=== PATIENT | female | born 1995 | race Caucasian/White ===

== ENCOUNTER 2017-08-24 03:41 | Emergency (ER) | payer BC, OTHER ==
[2017-08-24 04:02] VITALS: BP 129/82
[2017-08-24] MEDS ORDERED: Sodium Chloride 0.9% 10 ML Syringe FLUSH PRN (04:20)
[2017-08-24] MEDS ORDERED: Ondansetron 4 MG/2 ML SDV IVPUSH ONE (04:24)
--- NOTE | 2017-08-24 04:24 | EDM.PDOC ---
ED HPI GENERAL MEDICAL PROBLEM - General Chief Complaint: Abdominal Pain Stated Complaint: ABDOMINAL PAIN / VOMITING Time Seen by Provider: 08/24/17 04:12 Source of Information: Reports: Patient, Family, RN Notes Reviewed History Limitations: Reports: No Limitations - History of Present Illness INITIAL COMMENTS - FREE TEXT/NARRATIVE: 21-year-old female presents emergency department day plate of nausea and vomiting as well as generalized abdominal pain, she states she was feeling fine yesterday approximately 8:00 in the evening sudden onset nausea vomiting diarrhea has had consistent vomiting about every 30 minutes, denies any fevers shortness of breath or chest pain no problems with urination no history of abdominal surgeries she did eat at a restaurant having pulled pork and the only one that had that meal Lower Abdominal Pain Score (Numeric/FACES): 5 - Related Data Allergies Allergy/AdvReac Type Severity Reaction Status Date / Time No Known Allergies Allergy Verified 08/24/17 04:03 Home Meds: Home Meds * Control 1 tab PO DAILY 08/24/17 [History] Past Medical History - Past Health History Medical/Surgical History: Denies Medical/Surgical History Social & Family History - Tobacco Use Smoking Status *Q: Never Smoker - Recreational Drug Use Recreational Drug Use: No ED ROS GENERAL - Review of Systems Review Of Systems: See Below Constitutional: Reports: No Symptoms HEENT: Reports: No Symptoms Respiratory: Reports: Cough Cardiovascular: Reports: No Symptoms GI/Abdominal: Reports: Abdominal Pain, Diarrhea, Nausea, Vomiting : Reports: No Symptoms Musculoskeletal: Reports: No Symptoms Skin: Reports: No Symptoms Neurological: Reports: No Symptoms ED EXAM, GI/ABD - Physical Exam Exam: See Below Exam Limited By: No Limitations General Appearance: Alert, WD/WN, Mild Distress Head: Atraumatic, Normocephalic Neck: Normal Inspection, Supple, Non-Tender, Full Range of Motion Respiratory/Chest: No Respiratory Distress, Lungs Clear, Normal Breath Sounds, No Accessory Muscle Use Cardiovascular: Regular Rate, Rhythm, No Murmur GI/Abdominal Exam: Soft, Non-Tender, No Organomegaly, No Distention, No Abnormal Bruit, No Mass, Pelvis Stable Extremities: No Pedal Edema Course - Vital Signs Last Recorded V/S: Last Vital Signs Temp 98.8 F 08/24/17 04:00 Pulse 76 08/24/17 04:00 Resp 16 08/24/17 04:00 BP 129/82 08/24/17 04:00 Pulse Ox 100 08/24/17 04:00 - Orders/Labs/Meds Orders: Active Orders 24 hr Category Date Time Status Peripheral IV Care [RC] . DIRECTED Care 08/24/17 04:21 Active Abdomen 1V Flat [CR] Urgent Exams 08/24/17 04:20 Taken CULTURE URINE [RM] Urgent Lab 08/24/17 05:48 Ordered Lactated Ringers [Ringers, Lactated] 1,000 ml Med 08/24/17 04:30 Active IV ASDIRECTED Sodium Chloride 0.9% [Saline Flush] Med 08/24/17 04:20 Active 10 ml FLUSH ASDIRECTED PRN Peripheral IV Insertion Adult [OM.PC] Urgent Oth 08/24/17 04:20 Ordered Medication Orders Lactated Ringer's (Ringers, Lactated) 1,000 mls @ 999 mls/hr IV ASDIRECTED MONIE Last Admin: 08/24/17 04:33 Dose: 999 mls/hr Sodium Chloride (Saline Flush) 10 ml FLUSH ASDIRECTED PRN PRN Reason: Keep Vein Open Last Admin: 08/24/17 04:33 Dose: 10 ml Labs: Laboratory Tests 08/24/17 08/24/17 08/24/17 Range/Units 04:25 04:25 04:30 WBC 9.4 (4.5-11.0) K/uL RBC 4.44 (3.30-5.50) M/uL Hgb 13.5 (12.0-15.0) g/dL Hct 38.9 (36.0-48.0) % MCV 88 (80-98) fL MCH 30 (27-31) pg MCHC 35 (32-36) % Plt Count 256 (150-400) K/uL Neut % (Auto) 87 H (36-66) % Lymph % (Auto) 10 L (24-44) % [place] % (Auto) 4 (2-6) % Eos % (Auto) 0 L (2-4) % Baso % (Auto) 0 (0-1) % Sodium (140-148) mmol/L Potassium (3.6-5.2) mmol/L Chloride (100-108) mmol/L Carbon Dioxide (21-32) mmol/L Anion Gap (5.0-14.0) mmol/L BUN (7-18) mg/dL Creatinine (0.6-1.0) mg/dL Est Cr Clr Drug Dosing mL/min Estimated GFR (MDRD) (>60) Glucose (74-106) mg/dL Lactic Acid (0.4-2.0) mmol/L Calcium (8.5-10.1) mg/dL Total Bilirubin (0.2-1.0) mg/dL AST (15-37) U/L ALT (12-78) U/L Alkaline Phosphatase (46-116) U/L Total Protein (6.4-8.2) g/dL Albumin (3.4-5.0) g/dL Globulin (2.3-3.5) g/dL Albumin/Globulin Ratio (1.2-2.2) Lipase (73-393) U/L Urine Color Yellow Urine Appearance Slightly cloudy Urine pH 6.0 (4.5-8.0) Ur Specific [place] 1.020 (1.008-1.030) Urine Protein Negative (NEGATIVE) mg/dL Urine Glucose (UA) Normal (NEGATIVE) mg/dL Urine Ketones 15 H (NEGATIVE) mg/dL Urine Occult Blood Moderate (NEGATIVE) Urine Nitrite Negative (NEGATIVE) Urine Bilirubin Negative (NEGATIVE) Urine Urobilinogen Normal (NORMAL) mg/dL Ur Leukocyte Esterase Negative (NEGATIVE) Urine RBC 5-10 H (0-5) Urine WBC 5-10 H (0-5) Ur Epithelial Cells Few Amorphous Sediment Not seen Urine Bacteria Many Urine Mucus Few Urine HCG, Qual Negative 08/24/17 08/24/17 Range/Units 04:30 04:30 WBC (4.5-11.0) K/uL RBC (3.30-5.50) M/uL Hgb (12.0-15.0) g/dL Hct (36.0-48.0) % MCV (80-98) fL MCH (27-31) pg MCHC (32-36) % Plt Count (150-400) K/uL Neut % (Auto) (36-66) % Lymph % (Auto) (24-44) % [place] % (Auto) (2-6) % Eos % (Auto) (2-4) % Baso % (Auto) (0-1) % Sodium 141 (140-148) mmol/L Potassium 3.7 (3.6-5.2) mmol/L Chloride 106 (100-108) mmol/L Carbon Dioxide 21 (21-32) mmol/L Anion Gap 13.9 (5.0-14.0) mmol/L BUN 10 (7-18) mg/dL Creatinine 0.8 (0.6-1.0) mg/dL Est Cr Clr Drug Dosing 111.27 mL/min Estimated GFR (MDRD) > 60 (>60) Glucose 125 H (74-106) mg/dL Lactic Acid 2.7 H (0.4-2.0) mmol/L Calcium 8.7 (8.5-10.1) mg/dL Total Bilirubin 0.3 (0.2-1.0) mg/dL AST 22 (15-37) U/L ALT 32 (12-78) U/L Alkaline Phosphatase 65 (46-116) U/L Total Protein 8.2 (6.4-8.2) g/dL Albumin 4.2 (3.4-5.0) g/dL Globulin 4.0 H (2.3-3.5) g/dL Albumin/Globulin Ratio 1.1 L (1.2-2.2) Lipase 87 (73-393) U/L Urine Color Urine Appearance Urine pH (4.5-8.0) Ur Specific [place] (1.008-1.030) Urine Protein (NEGATIVE) mg/dL Urine Glucose (UA) (NEGATIVE) mg/dL Urine Ketones (NEGATIVE) mg/dL Urine Occult Blood (NEGATIVE) Urine Nitrite (NEGATIVE) Urine Bilirubin (NEGATIVE) Urine Urobilinogen (NORMAL) mg/dL Ur Leukocyte Esterase (NEGATIVE) Urine RBC (0-5) Urine WBC (0-5) Ur Epithelial Cells Amorphous Sediment Urine Bacteria Urine Mucus Urine HCG, Qual Meds: Medications Generic Name Dose Route Start Last Admin Trade Name Freq PRN Reason Stop Dose Admin Lactated Ringer's 1,000 mls @ 999 mls/hr 08/24/17 04:30 08/24/17 04:33 Ringers, Lactated IV 999 mls/hr ASDIRECTED MONIE Administration Sodium Chloride 10 ml 08/24/17 04:20 08/24/17 04:33 Saline Flush FLUSH 10 ml ASDIRECTED PRN Administration Keep Vein Open Discontinued Medications Generic Name Dose Route Start Last Admin Trade Name Freq PRN Reason Stop Dose Admin Ondansetron HCl 4 mg 08/24/17 04:24 08/24/17 04:32 Zofran IVPUSH 08/24/17 04:25 4 mg ONETIME ONE Administration Prochlorperazine Edisylate 5 mg 08/24/17 05:09 08/24/17 05:20 Compazine IVPUSH 08/24/17 05:10 5 mg ONETIME ONE Administration Prochlorperazine Maleate 10 mg 08/24/17 05:49 Compazine PO 08/24/17 05:50 ONETIME ONE Departure - Departure Time of Disposition: 05:53 Disposition: Home, Self-Care 01 Condition: Good Clinical Impression: Gastroenteritis - Discharge Information Referrals: PCP,None [Primary Care Provider] - Forms: ED Department Discharge Additional Instructions: use Compazine as needed help control nausea and vomiting symptoms, Please followup with your primary care provider in 3-5 days if not better, please call return to the emergency department with worsening of symptoms. - My Orders Last 24 Hours: My Active Orders 08/24/17 04:20 Abdomen 1V Flat [CR] Urgent Sodium Chloride 0.9% [Saline Flush] 10 ml FLUSH ASDIRECTED PRN Peripheral IV Insertion Adult [OM.PC] Urgent 08/24/17 04:21 Peripheral IV Care [RC] . DIRECTED 08/24/17 04:30 Lactated Ringers [Ringers, Lactated] 1,000 ml IV ASDIRECTED 08/24/17 05:48 CULTURE URINE [RM] Urgent - Assessment/Plan Last 24 Hours: My Active Orders 08/24/17 04:20 Abdomen 1V Flat [CR] Urgent Sodium Chloride 0.9% [Saline Flush] 10 ml FLUSH ASDIRECTED PRN Peripheral IV Insertion Adult [OM.PC] Urgent 08/24/17 04:21 Peripheral IV Care [RC] . DIRECTED 08/24/17 04:30 Lactated Ringers [Ringers, Lactated] 1,000 ml IV ASDIRECTED 08/24/17 05:48 CULTURE URINE [RM] Urgent Plan: Assessment Acuity = acute Site and laterality = gastroenteritis Etiology = suspicious for food borne Manifestations = nausea and vomiting Location of injury = Home Lab values = CBC within normal limits CMP within normal limits lactic acid elevated 2.7 consistent with lactic acidosis urinalysis reveals 5-10 rbc's consistent hematuria 5-10 wbc's consists of pyuria, 15 ketones consistent acute anuria, cultures pending x-ray I did review films myself I cannot appreciate any acute process, the official read from radiology is pending Plan She had good improvement combination Zofran and Compazine that Compazine provided better relief as well as fluids she is discharged home with Compazine 10 mg by mouth every 8 hours when necessary of her follow-up with primary care in 3-5 days if no improvement Patient was in agreement with the plan all questions were answered, they were instructed to return to the emergency department or call for worsening symptoms. This note was dictated using [employer] voice recognition software please call with any questions.
[2017-08-24] MEDS ORDERED: Lactated Ringers 1,000 ML IV SCH (04:30)
[2017-08-24] MEDS ORDERED: Prochlorperazine 5 MG in Sodium Chloride 0.9% 50 ML IV ONE (05:07)
[2017-08-24] MEDS ORDERED: Prochlorperazine 10 MG/2 ML SDV IVPUSH ONE (05:09)
[2017-08-24] MEDS ORDERED: Prochlorperazine 10 MG Tab PO ONE (05:49)
--- NOTE | 2017-08-25 11:24 | CR ---
Abdomen 1V Flat INDICATION: pain COMPARISON: None FINDINGS: 2 supine views. No abnormal bowel gas pattern. No signs of bowel obstruction. No abnormal calculi seen. IMPRESSION: Nothing acute.
== END 2017-08-24 06:26 | disposition home or self-care (01) ==
LOC: JP.ED 03:41
DX: K52.9 Noninfective gastroenteritis and colitis, unspecified (principal)
CPT/HCPCS: 36415; 74000; 80053; 81001; 81025; 83605; 83690; 85025; 87086; 96361; 96374; 99284; A9270; J0780; J2405; J7050; J7120